=== PATIENT | female | born 1945 | race Caucasian/White ===

== ENCOUNTER → 2018-11-18 15:21 | Outpatient (CLI) | payer MEDICARE, OTHER, SELFPAY ==
--- NOTE | 2018-11-18 | DI.RAD.S_ITS ---
PROCEDURE: XR CHEST 2V INDICATIONS: CHRONIC COUGH TECHNIQUE: 2 views of the chest were acquired. COMPARISON: [facility], , CHEST 1 VIEW, 01/01/2018, 11:50. FINDINGS: Surgical changes and devices: None. Lungs and pleura: Lungs are clear. No pleural effusions or pneumothorax. Mediastinum: Mediastinal contours are normal. Heart size is normal. Bones and chest wall: No suspicious bony abnormalities. Soft tissues appear unremarkable. IMPRESSION: Source of chronic cough is not seen. Dictated by: Pedro Luis Oseguera M.D. on 11/18/2018 at 16:32 Approved by: Pedro Luis Oseguera M.D. on 11/18/2018 at 16:32
== END ==
PROVIDERS: Visit Provider Nurse Practitioner Family
DX: R05 Cough (principal)
CPT/HCPCS: 71046

== ENCOUNTER → 2018-12-14 14:56 | Outpatient (CLI) | payer MEDICARE, OTHER, SELFPAY | PROVIDERS: Visit Provider Nurse Practitioner Family | DX: Z78.0 Asymptomatic menopausal state (principal) | CPT/HCPCS: 77080 ==

== ENCOUNTER → 2021-01-31 09:14 | Outpatient (CLI) | payer MEDICARE, OTHER, SELFPAY ==
[2021-01-31 11:20] LABS: COVID19 -Nasal RAPID Negative (Negative)
== END ==
PROVIDERS: PCP Physician Assistant Medical; Visit Provider Surgery
DX: Z20.822 Contact with and (suspected) exposure to COVID-19 (principal); Z01.812 Encounter for preprocedural laboratory examination
CPT/HCPCS: 87635; C9803

== ENCOUNTER 2021-02-01 09:18 | Day surgery (SDC) | payer MEDICARE, OTHER, SELFPAY ==
[2021-02-01] VITALS (8 sets, daily range): BP systolic 76–159; BP diastolic 43–87; PULSE 63–74; RESP 10–16; TEMP 36.1–36.4; O2SAT 94–98; BMI 33.3
--- NOTE | 2021-02-01 10:02 | PM.HP.1 ---
History of Present Illness History of Present Illness Date Patient Seen: 02/01/21 Time Patient Seen: 10:02 Chief complaint: SDC Narrative: This is a 75-year-old woman with history of colon polyps and constipation who comes in for colonoscopy. She denies any melena, hematochezia, unexplained abdominal pain, or unexplained weight loss. She has noticed a change in her bowel habit including worsening constipation over the last 6 or 8 months. She says she is otherwise in good health. ROS: Constipation. Thirteen system review is otherwise negative other than as mentioned below and in HPI. PE: GENERAL: Well groomed and cooperative. Appears stated age. Answers questions promptly and appropriately. Vital signs noted. HENT: Normocephalic, atraumatic. Hearing intact. EYES: Conjunctiva pink, sclera white, no periorbital swelling. CARDIOVASCULAR: Regular rate. No pedal edema. RESPIRATORY: Non-tachypneic, breathing comfortably on room air. GASTROINTESTINAL: Abdomen soft and non-distended GENITALURINARY: No flank tenderness. MUSCULOSKELETAL: Equal tone and mass bilaterally. SKIN: Warm, dry, soft, appropriate color for ethnicity. No other lesions, rashes, or wounds. NEURO: Alert and Oriented X 3. No gross sensory deficits, or cognitive issues. PSYCH: Appropriate affect and mood. Meds Home Medications and Allergies Home Medications Medication Instructions Recorded Confirmed Type metoprolol tartrate 50 mg PO BID #0 01/01/18 02/01/21 History omeprazole 20 mg PO QDAY #0 01/01/18 02/01/21 History simvastatin 20 mg PO HS #0 01/01/18 02/01/21 History fexofenadine [Amber] 180 mg PO DAILY 02/01/21 02/01/21 History losartan 100 mg PO DAILY 02/01/21 02/01/21 History polyethylene glycol 3350 [Miralax] 17 g PO DAILY 02/01/21 02/01/21 History triamterene-hydrochlorothiazid 1 tab PO DAILY 02/01/21 02/01/21 History Allergies Allergy/AdvReac Type Severity Reaction Status Date / Time No Known Allergies Allergy Uncoded 01/21/18 12:08 Assessment & Plan Assessment and plan (1) History of colon polyps: Status: Acute Assessment & Plan narrative: Risks and benefits of screening colonoscopy and possible polypectomy were discussed with the patient including risk of bleeding, perforation, need for additional procedures, risks of anesthesia. The patient desires to proceed with the colonoscopy procedure. COVID-19 COVID-19 status: Negative Result date/Date tested (Pos, Neg/Pending): 01/31/21 Time Spent With Patient Time with patient: 15-24 minutes Quality VTE Deep Vein Thrombosis/Pulmonary Embolism Present on Admission: No
[2021-02-01] MEDS: SODIUM CHLORIDE 0.9% 1,000 ML 200 ML IV (10:29)
--- NOTE | 2021-02-01 10:48 | P.OP.ENDO_ITS ---
Operative Date/Time/Diagnoses Date of procedure: 02/01/21 Time of procedure: 10:48 Pre-op diagnosis: History of colon polyps, due for surveillance colonoscopy Post-op diagnosis: other (No polyps, normal exam) Procedure & Clinicians Study performed: Colonoscopy Procedural sedation performed by the endoscopist Same procedure as scheduled: Yes Indications: Personal history of colon polyps, change in bowel habit Surgeon: Maxine Hanson Procedure Notes SCOAP/Timeout: Performed Procedure in detail: The patient was brought to the room and placed in left lateral decubitus position with all bony prominences padded. A time-out was performed and then the patient was given procedural sedation starting with 2 mg of Versed and 100 mcg of fentanyl. A total of 6 mg of Versed and 150 micro g of fentanyl were given for the entire procedure. Vitals were monitored throughout the procedure and remained stable. Once adequately sedated, the procedure was begun. A rectal exam was performed revealing no abnormalities. The colonoscope was then introduced to the rectum and advanced to the cecum in the usual fashion. The cecum was identified by the appendiceal orifice, the mucosal tri- fold, and the ileocecal valve. The scope was then retracted while rotating side to side and examining each mucosal fold. At the conclusion of the procedure retroflexion was performed and small grade 1-2 internal hemorrhoids without stigmata of bleeding were seen. The scope was then withdrawn from the rectum the procedure was concluded. The patient tolerated the procedure well and was transferred to the PACU in stable condition. Scope withdrawal time: 6 Sedation minutes: 18 Specimen(s): none sent Complications: none Impression: Normal colon Post-procedure Recommendations: Colonscopy in 5 years (Due to personal history of colon polyps.) Follow up: as needed Disposition: PACU
[2021-02-01] MEDS: MIDAZOLAM 5 MG/5 ML VIAL IV (11:05)
[2021-02-01] MEDS: fentaNYL 250 MCG/5 ML INJ IV (11:05)
== END 2021-02-01 11:53 | disposition home or self-care (01) ==
LOC: ENDO 09:22
PROVIDERS: PCP Physician Assistant Medical; Referring Provider Surgery; Visit Provider Surgery
PROC: 0DJD8ZZ Inspection of Lower Intestinal Tract, Via Natural or Artificial Opening Endoscopic (ICD-10-PCS; CPT 45378; principal; 2021-02-01 10:45)
DX: R19.4 Change in bowel habit (principal); Z86.010 Personal history of colon polyps; K64.0 First degree hemorrhoids
CPT/HCPCS: 45378; 99152; J2250; J3010

== ENCOUNTER 2022-03-23 18:05 | Emergency (ER) | payer MEDICARE, OTHER, SELFPAY ==
[2022-03-23] VITALS (9 sets, daily range): BP systolic 152–191; BP diastolic 68–82; PULSE 60–68; RESP 12–23; TEMP 36.5–36.6; O2SAT 96–100; BMI 32.0
--- NOTE | 2022-03-23 18:24 | DI.RAD.S_ITS ---
PROCEDURE: XR CHEST 1V INDICATIONS: chest pain TECHNIQUE: One view of the chest was acquired. COMPARISON: [facility], CR, XR CHEST 2V, 11/18/2018, 15:33. FINDINGS: Surgical changes and devices: Surgical anchors are seen in the right proximal humerus. Lungs and pleura: Lungs are clear. No pleural effusions or pneumothorax. Mediastinum: Mediastinal contours appear normal. Heart size is normal. Bones and chest wall: No suspicious bony lesions. Overlying soft tissues appear unremarkable. IMPRESSION: No acute cardiopulmonary abnormality. Dictated by: Andre Mulligan M.D. on 03/23/2022 at 19:07 Approved by: Andre Mulligan M.D. on 03/23/2022 at 19:07
--- NOTE | 2022-03-23 19:02 | PC.NURSE ---
Pt reports seeing white flashes of light, lightheadedness, and feeling foggy which began while at the park earlier today. She reports it lasted for about 1 to 1.5 hours. She states she went and laid down which helped. Reports only seeing flashes of light when eyes are open, but not shut. Hx of cataracts. Pt reports all symptoms have resolved.
--- NOTE | 2022-03-23 19:19 | ED.GENADULT ---
HPI - General Adult General Chief complaint: Dizziness Stated complaint: Low blood pressure Time Seen by Provider: 03/23/22 19:05 Source: patient Mode of arrival: Ambulatory History of Present Illness HPI narrative: 76-year-old woman with history of labile blood pressure and cardiovascular disease with description of valvular abnormality presents today complaining of an episode after she walked her grandchildren to a park where she had approximately 20 minute of severely bright almost knee on like lytes with zigzag did points on the outside. Not associated with headache, other visual changes or visual loss, chest pain, palpitations, abdominal pain, nausea, vomiting. She had no paresthesias or other cognitive deficits. Symptoms resolved spontaneously about 20 minutes after initially starting. She notes that her blood pressure today earlier this morning was at 121/77 later this afternoon was at 139/77. She continues to take her spironolactone 25 mg, losartan 100 mg, Lasix 20 mg, metoprolol 100 mg b.i.d., 20 mg of simvastatin 20 mg of omeprazole. In the emergency department she states that she feels fine at this time. Related Data Home Medications Medication Instructions Recorded Confirmed metoprolol tartrate 50 mg tablet 50 mg PO BID ##0 01/01/18 02/01/21 omeprazole 20 mg tablet,delayed 20 mg PO QDAY ##0 01/01/18 02/01/21 release simvastatin 20 mg tablet 20 mg PO HS ##0 01/01/18 02/01/21 fexofenadine 180 mg tablet 180 mg PO DAILY 02/01/21 02/01/21 losartan 100 mg tablet 100 mg PO DAILY 02/01/21 02/01/21 polyethylene glycol 3350 17 gram 17 g PO DAILY 02/01/21 02/01/21 oral powder packet (Miralax) triamterene 37.5 1 tab PO DAILY 02/01/21 02/01/21 mg-hydrochlorothiazide 25 mg tablet Allergies Allergy/AdvReac Type Severity Reaction Status Date / Time No Known Allergies Allergy Uncoded 01/21/18 12:08 Review of Systems Review of Systems Narrative: Remainder of complete review of systems is otherwise unremarkable except for that included in the HPI. Patient History Social History household members: spouse Smoking Status: Never smoker alcohol intake: former Smoking Status: Never smoker Substance Use Type: does not use Exam Initial Vital Signs Initial Vital Signs: Vital Signs Temperature 97.7 F 03/23/22 18:05 Pulse Rate 67 03/23/22 18:05 Respiratory Rate 18 03/23/22 18:05 Blood Pressure 191/82 H 03/23/22 18:05 Pulse Oximetry 96 03/23/22 18:05 Oxygen Delivery Method 03/23/22 18:05 Course Orders Ordered: ED Orders 03/23/22 18:24 XR chest 1V Stat EKG-12 Lead Stat 03/23/22 18:46 Complete Blood Count AUTO DIFF Stat Comprehensive Metabolic Panel Stat Lipase Stat Magnesium Stat Troponin & CK Cardiac Panel Stat Vital Signs Vital signs: Vital Signs - 8 hr 03/23/22 18:05 Temperature 97.7 F Pulse Rate 67 Respiratory Rate 18 Blood Pressure 191/82 H Pulse Oximetry 96 Oxygen Delivery Method Room Air Medical Decision Making Lab Data Result diagrams: 03/23/22 18:46 03/23/22 18:46 Labs: Lab Results 03/23/22 03/23/22 Range/Units 18:46 18:46 WBC 7.5 (4.5-11.0) X10^3/uL RBC 4.57 (4.0-5.2) X10^6/uL Hgb 12.4 (12.0-16.0) g/dL Hct 36.9 (36-46) % MCV 80.8 (80-100) fL MCH 27.1 (26-34) PG MCHC 33.5 (30-36) % RDW 14.9 H (11.6-14.8) % Plt Count 267 (150-400) X10^3/uL Neut % (Auto) 53.7 (50-75) % Lymph % (Auto) 35.3 (25-40) % [place] % (Auto) 7.1 (3-14) % Eos % (Auto) 3.1 (2-4) % Baso % (Auto) 0.8 (0-2) % Neut # (Auto) 4000 (3330-1333) /uL Lymph # (Auto) 2600 (6474-7594) /uL [place] # (Auto) 500 (0-900) /uL Eos # (Auto) 200 (0-450) /uL Baso # (Auto) 100 (0-100) /uL Sodium 139 (137-145) mmol/L Potassium 4.7 (3.4-5.1) mmol/L Chloride 101 (98-107) mmol/L Carbon Dioxide 29 (22-32) mmol/L BUN 24 H (7-17) mg/dL Creatinine 1.09 H (0.52-1.04) mg/dL Estimated GFR 52 L (>60) mL/min BUN/Creatinine Ratio 22.0 (6-22) Glucose 106 (80-110) mg/dL Calcium 9.3 (8.4-10.2) mg/dL Magnesium 2.0 (1.6-2.3) mg/dL Total Bilirubin 0.7 (0.2-1.3) mg/dL AST 23 (14-36) IU/L ALT 18 (<35) IU/L Alkaline Phosphatase 81 (38-126) U/L Total Creatine Kinase 37 (30-135) U/L CK-MB (CK-2) TNP CK-MB (CK-2) Rel Index TNP Troponin I < 0.012 (0.01-0.034) ng/mL Total Protein 7.8 (6.3-8.2) g/dL Albumin 4.5 (3.5-5.0) g/dL Globulin 3.3 (1.7-4.1) g/dL Albumin/Globulin Ratio 1.4 (1.0-2.8) Lipase 82 (23-300) U/L Imaging Data Chest x-ray: Radiologist's Impression: FINDINGS:? ? Surgical changes and devices:? Surgical anchors are seen in the right proximal humerus. ? Lungs and pleura:? Lungs are clear.? No pleural effusions or pneumothorax.? ? Mediastinum:? Mediastinal contours appear normal.? Heart size is normal.? ? Bones and chest wall:? No suspicious bony lesions.? Overlying soft tissues appear unremarkable.? ? IMPRESSION:? No acute cardiopulmonary abnormality. ? ? Dictated by: Andre Mulligan M.D. on 03/23/2022 at 19:07? ?? ECG Data Interpretation: Sinus rhythm first-degree block at a rate of 65 Left axis deviation with left bundle branch block Does not meet Sgarbossa criteria for ischemic abnormalities MDM Narrative Medical decision making narrative: 76-year-old woman who presents with complaints of right flashing lights lasting approximately 20 minutes earlier today. She has had some blood pressure medication changes but blood pressure seems to be appropriate. When shown pictures of ocular migraine she positively identifies the lytes as what she experienced earlier today. In retrospect, she states that she did have something similar approximately 30 years ago but it has not bothered her since. At this time I am seeing no evidence of acute coronary syndrome, stroke, ophthalmic abnormalities or retinal injury. Her blood pressure is adequately controlled and she is no longer having any ocular migraine symptoms. She is safe to go and lost her follow-up with her primary care provider. Discharge Plan Departure Patient Disposition: Home Clinical Impression: Ocular migraine Activity Restrictions/Additional Instructions: Thank you for coming in today Your workup was unremarkable and her blood pressure is stable at this point. Please continue all of your blood pressure medications as prescribed. Your description of the light show this afternoon absolutely correlates with an ocular migraine. This is an interesting migraine variant that typically lasts around 20 minutes with the bright lights and zigzag pattern you describe an typically is not associated with headache. This is not a sign of a stroke or an indication that you are at higher risk for stroke in the next couple of days. There is nothing different that you need to do at this point. If you have new or unusual symptoms please feel free to return to the emergency department Prescriptions: No Action simvastatin 20 MG tablet 20 mg PO HS Qty: 0 metoprolol tartrate 50 MG tablet 50 mg PO BID Qty: 0 omeprazole 20 MG tablet,delayed release (DR/EC) 20 mg PO QDAY Qty: 0 fexofenadine 180 mg Tablet 180 mg PO DAILY losartan 100 mg tablet 100 mg PO DAILY triamterene-hydrochlorothiazid 37.5-25 mg tablet 1 tab PO DAILY polyethylene glycol 3350 [Miralax] 17 gram Powder In Packet 17 g PO DAILY Referrals: Lina Cadena PA-C [Primary Care Provider] -
[2022-03-23 19:28] LABS: Alanine Aminotransferase 18 IU/L (<35); Albumin 4.5 g/dL (3.5-5.0); Albumin Globulin Ratio 1.4 (1.0-2.8); Alkaline Phosphatase 81 U/L (38-126); Aspartate Aminotransferase 23 IU/L (14-36); Bilirubin Total 0.7 mg/dL (0.2-1.3); Blood Urea Nitrogen 24 mg/dL (7-17); Calcium 9.3 mg/dL (8.4-10.2); Carbon Dioxide 29 mmol/L (22-32); Chloride 101 mmol/L (98-107); Creatine Kinase 37 U/L (30-135); Estimated Glomerular Filt Rate 52 mL/min (>60); Globulin 3.3 g/dL (1.7-4.1); Glucose 106 mg/dL (80-110); HEMOLYSIS < 15 (0-50); Lipase 82 U/L (23-300); Potassium 4.7 mmol/L (3.4-5.1); Sodium 139 mmol/L (137-145); Total Protein 7.8 g/dL (6.3-8.2)
[2022-03-23 19:30] LABS: Add Manual Diff / Slide Review NO; Basophils Absolute Auto 100 /uL (0-100); Basophils Percent Auto 0.8 % (0-2); Eosinophils Absolute Auto 200 /uL (0-450); Eosinophils Percent Auto 3.1 % (2-4); Hematocrit 36.9 % (36-46); Hemoglobin 12.4 g/dL (12.0-16.0); Lymphocytes Absolute Auto 2600 /uL (1100-4500); Lymphocytes Percent Auto 35.3 % (25-40); Mean Corpuscular HGB Conc 33.5 % (30-36); Mean Corpuscular Hemoglobin 27.1 PG (26-34); Mean Corpuscular Volume 80.8 fL (80-100); Monocytes Absolute Auto 500 /uL (0-900); Monocytes Percent Auto 7.1 % (3-14); Neutrophils Absolute Auto 4000 /uL (1500-7000); Neutrophils Percent Auto 53.7 % (50-75); Platelet Count 267 X10^3/uL (150-400); Red Blood Cell Count 4.57 X10^6/uL (4.0-5.2); Red Cell Distribution Width 14.9 % (11.6-14.8); White Blood Cell Count 7.5 X10^3/uL (4.5-11.0)
[2022-03-23 19:40] LABS: Troponin I < 0.012 ng/mL (0.01-0.034)
== END 2022-03-23 20:03 | disposition home or self-care (01) ==
PROVIDERS: Emergency Provider Emergency Medicine; PCP Physician Assistant Medical
DX: G43.109 Migraine with aura, not intractable, without status migrainosus (principal); R07.9 Chest pain, unspecified
CPT/HCPCS: 71045; 80053; 82550; 83690; 83735; 84484; 85025; 93005; 93010; 99283

== ENCOUNTER 2025-03-01 06:47 | Emergency (ER) | payer MEDICARE, OTHER, SELFPAY ==
[2025-03-01] VITALS (18 sets, daily range): BP systolic 115–168; BP diastolic 58–108; PULSE 63–74; RESP 11–24; TEMP 36.6; O2SAT 95–98; BMI 30.7
--- NOTE | 2025-03-01 07:28 | DI.RAD.S_ITS ---
PROCEDURE: XR CHEST 1V INDICATIONS: Chest Pain TECHNIQUE: One view of the chest was acquired. COMPARISON: [facility], CR, XR CHEST 1V, 03/23/2022, 18:28. [facility], CR, XR CHEST 2V, 11/18/2018, 15:33. FINDINGS AND IMPRESSION: Low lung volumes. No dense airspace disease or pleural effusions. Normal heart size, unchanged. Degenerative osseous findings. Dictated by: Venkat Joshi M.D. on 03/01/2025 at 8:09 Approved by: Venkat Joshi M.D. on 03/01/2025 at 8:10
--- NOTE | 2025-03-01 07:38 | EKG_ITS ---
[address] [address] [place] [address] Test Date: 2025-03-01 Pat Name: Raisa Alvarado Department: [facility] Room: Gender: Female Dental Office Assistant: SHARATH : 1945 Requested By: Order Number: [id number] Reading MD: Rikki Conte Measurements Intervals Nimitz Rate: 69 P: 39 DC: 236 QRS: -42 QRSD: 150 T: 100 QT: 438 QTc: 469 Interpretive Statements Sinus rhythm with 1st degree AV block Left axis deviation Left bundle branch block Electronically Signed On 03-02-2025 16:21:06 PDT by Rikki Conte
[2025-03-01 07:58] LABS: Add Manual Diff / Slide Review NO; Basophils Absolute Auto 100 /uL (0-100); Basophils Percent Auto 1.1 % (0-2); Eosinophils Absolute Auto 200 /uL (0-450); Eosinophils Percent Auto 3.5 % (2-4); Hematocrit 36.6 % (36-46); Hemoglobin 12.1 g/dL (12.0-16.0); Lymphocytes Absolute Auto 2200 /uL (1100-4500); Lymphocytes Percent Auto 34.7 % (25-40); Mean Corpuscular Hemoglobin 27.8 PG (26-34); Mean Corpuscular Volume 84.2 fL (80-100); Monocytes Absolute Auto 800 /uL (0-900); Monocytes Percent Auto 11.9 % (3-14); Neutrophils Absolute Auto 3200 /uL (1500-7000); Neutrophils Percent Auto 48.8 % (50-75); Platelet Count 217 X10^3/uL (150-400); Red Blood Cell Count 4.35 X10^6/uL (4.0-5.2); White Blood Cell Count 6.4 X10^3/uL (4.5-11.0)
[2025-03-01 08:05] LABS: Prothrombin Time 11.3 SECONDS (9.4-12.5)
[2025-03-01 08:08] LABS: PTT Partial Thromboplastin Tim 35 SECONDS (25.1-36.5)
[2025-03-01 08:10] LABS: Alanine Aminotransferase 23 IU/L (<35); Albumin 4.5 g/dL (3.5-5.0); Albumin Globulin Ratio 1.6 (1.0-2.8); Alkaline Phosphatase 80 U/L (38-126); Aspartate Aminotransferase 27 IU/L (14-36); Bilirubin Total 0.7 mg/dL (0.2-1.3); Blood Urea Nitrogen 26 mg/dL (7-17); Calcium 9.9 mg/dL (8.4-10.2); Carbon Dioxide 26 mmol/L (22-32); Chloride 104 mmol/L (98-107); Creatine Kinase 37 U/L (30-135); Estimated Glomerular Filt Rate 46 mL/min (>60); Globulin 2.9 g/dL (1.7-4.1); Glucose 98 mg/dL (70-99); HEMOLYSIS < 15 (0-50); Lipase 88 U/L (23-300); Magnesium 1.7 mg/dL (1.6-2.3); Potassium 4.2 mmol/L (3.4-5.1); Sodium 138 mmol/L (137-145); Total Protein 7.4 g/dL (6.3-8.2)
[2025-03-01 08:22] LABS: NT-proBNP (BNP-Adult 18+) 317 pg/mL (<450); Troponin I < 0.012 ng/mL (0.01-0.034)
--- NOTE | 2025-03-01 08:44 | ED_ITS ---
HPI - General Adult General Chief complaint: Altered Mental Status Stated complaint: Has been falling down started 2 days ago Time Seen by Provider: 03/01/25 08:42 Source: patient and family Mode of arrival: Ambulatory Limitations: no limitations History of Present Illness HPI narrative: 79-year-old female history of hypertension, dyslipidemia, CKD with recent sinus infection on antibiotics who presents for multiple episodes of falling. Patient states she was fallen 5 or 6 times in the last 2 or 3 days. She does not think she was hit her head at any point, she has chronic low back pain but states it is not worse than her normal. She notes some chronic left leg weakness but states it has been significantly worse the last 2 or 3 days and now she was to lift and help to move her leg. She does not have any pain radiating down her leg. No numbness or tingling down the leg. She denies any headaches, she denies any chest pain or shortness of breath. No nausea or vomiting. No numbness or tingling does not appreciate any obvious weakness of her left upper extremity but she was not sure. She does note speech changes and her at bedside also notes she was had word-finding difficulty and occasionally slurring of her speech over the past 2-3 days. Patient has been states there maybe a little bit of left-sided facial droop but he was not convinced. She was also noticed a little bit of vision change but mostly just in the morning. Patient states no aspirin or thinners, she states she takes medication for hypertension, dyslipidemia, seasonal allergies, Jardiance for CKD but quit a month ago because it diarrhea has been on oral antibiotic for a sinus infection. She denies any back surgeries. Reports a prior allergy to sulfa but states she was taken it since. No tobacco, alcohol or recreational drugs. Follows with CANDY cadena as her primary care physician. Follows with nephrology and Cardiology through [facility]. Related Data Home Medications Medication Instructions Recorded Confirmed metoprolol tartrate 50 mg tablet 50 mg PO BID ##0 01/01/18 02/01/21 omeprazole 20 mg tablet,delayed 20 mg PO QDAY ##0 01/01/18 02/01/21 release simvastatin 20 mg tablet 20 mg PO HS ##0 01/01/18 02/01/21 fexofenadine 180 mg tablet 180 mg PO DAILY 02/01/21 02/01/21 losartan 100 mg tablet 100 mg PO DAILY 02/01/21 02/01/21 polyethylene glycol 3350 17 gram 17 g PO DAILY 02/01/21 02/01/21 oral powder packet (Miralax) triamterene 37.5 1 tab PO DAILY 02/01/21 02/01/21 mg-hydrochlorothiazide 25 mg tablet Allergies Allergy/AdvReac Type Severity Reaction Status Date / Time amlodipine Allergy Verified 03/01/25 07:22 Review of Systems Review of Systems ROS Unobtainable: All systems reviewed & are unremarkable except as noted in HPI and below Patient History Social History household members: spouse Smoking Status: Never smoker alcohol intake: former Smoking Status: Never smoker Exam Narrative Exam Narrative: GEN: well nourished, well appearing female, alert and oriented x 3, patient appears to be in mild distress. HEENT: Atraumatic, pupils are equal round reactive to light, extraocular movements are intact, nares are clear, TMs are clear with no fluid, there is no conjunctival pallor. Throat is clear without any exudates, erythema, tonsillar enlargement or uvular deviation, questionable left facial droop. HEART: Regular rate and rhythm without murmur, clicks, rubs. Pulses are equal in upper and lower extremities LUNGS:Lungs clear to auscultation, no wheezes, rales, crackles, chest moves symmetrically ABD:bowel sounds normal, soft, non-tender, no guarding, rebound, rigidity, no masses noted, no hepatosplenomegaly :No CVA tenderness MSCL: Non-tender, no muscle atrophy, muscles strength 5/5 upper and lower extremities, full range of motion. NEURO:CN 2-12 intact, sensation normal, finger nose finger test normal, heel bruno test difficulty with left leg patient is able to perform with the right. Occasional word-finding on exam. Initial Vital Signs Initial Vital Signs: Vital Signs Temperature 98 F 03/01/25 07:23 Pulse Rate 74 03/01/25 07:23 Respiratory Rate 16 03/01/25 07:23 Blood Pressure 133/67 03/01/25 07:23 Pulse Oximetry 96 03/01/25 07:23 Oxygen Delivery Method Room Air 03/01/25 07:23 Scores NIH Stroke Scale Level of Conciousness: Alert, keenly responsive Ask month/age: Answers both questions correctly. Open/close eyes, close hand: Performs both tasks correctly Best gaze horizontal: Normal Visual bar: No visual loss Facial palsy: Normal symetrical movement Left arm drift: No drift for full 10 sec Right arm drift: No drift for full 10 sec Left leg drift: No drift for full 5 sec Right leg drift: No drift for full 5 sec Limb ataxia: Present in one limb Sensory on face/arms/legs: Normal, no sensory loss Best language: No aphasia, normal Dysarthria: Normal Extinction or inattention: No abnormality Total NIH Stroke scale score: 1 Course Orders Ordered: ED Orders 03/01/25 07:28 XR chest 1V Stat EKG-12 Lead Stat RT Consult Eval and Treat NOW 03/01/25 07:49 Complete Blood Count AUTO DIFF Stat Comprehensive Metabolic Panel Stat Lactate (Lactic Acid) Stat Lipase Stat Magnesium Stat NT-proBNP (BNP-Adult 18+) Stat PTT Partial Thromboplastin Escobar Stat Prothrombin Time INR Stat Troponin & CK Cardiac Panel Stat 03/01/25 09:04 MR stroke Stat 03/01/25 09:05 CT head/brain wo con Stat Discontinued Medications Midazolam HCl (Midazolam 5 Mg/Ml Vial) 0.5 mg IV NOW ONE Stop: 03/01/25 10:01 Last Admin: 03/01/25 10:03 Dose: 0.5 mg Documented By: SHARATH Vital Signs Vital signs: Vital Signs - 8 hr 03/01/25 07:51 03/01/25 07:51 03/01/25 08:00 Pulse Rate 66 66 Respiratory Rate 22 19 Blood Pressure 141/63 H Pulse Oximetry 97 98 03/01/25 08:00 03/01/25 08:30 03/01/25 08:30 Pulse Rate 66 Respiratory Rate 17 Blood Pressure 146/71 H 154/68 H Pulse Oximetry 97 03/01/25 09:00 03/01/25 09:01 03/01/25 09:01 Pulse Rate 66 67 Respiratory Rate 24 23 Blood Pressure 154/72 H Pulse Oximetry 97 97 03/01/25 09:29 03/01/25 09:29 03/01/25 09:30 Pulse Rate 69 70 Respiratory Rate 15 20 Blood Pressure 168/108 H Pulse Oximetry 97 98 03/01/25 09:31 03/01/25 09:31 03/01/25 10:00 Pulse Rate 67 66 Respiratory Rate 20 18 Blood Pressure 161/69 H Pulse Oximetry 98 96 03/01/25 10:01 03/01/25 10:01 03/01/25 10:54 Pulse Rate 68 69 Respiratory Rate 23 20 Blood Pressure 154/80 H Pulse Oximetry 97 95 03/01/25 10:55 03/01/25 10:55 03/01/25 11:00 Pulse Rate 66 66 Respiratory Rate 11 L 18 Blood Pressure 145/64 H Pulse Oximetry 97 97 03/01/25 11:01 03/01/25 11:01 03/01/25 11:30 Pulse Rate 66 Respiratory Rate 19 Blood Pressure 115/60 123/58 L Pulse Oximetry 98 03/01/25 11:30 Pulse Rate 63 Respiratory Rate 21 Blood Pressure Pulse Oximetry 97 Medical Decision Making Lab Data 03/01/25 07:49 03/01/25 07:49 Labs: Lab Results 03/01/25 Range/Units 07:49 WBC 6.4 (4.5-11.0) X10^3/uL RBC 4.35 (4.0-5.2) X10^6/uL Hgb 12.1 (12.0-16.0) g/dL Hct 36.6 (36-46) % MCV 84.2 (80-100) fL MCH 27.8 (26-34) PG MCHC 33.0 (30-36) % RDW 14.0 (11.6-14.8) % Plt Count 217 (150-400) X10^3/uL Neut % (Auto) 48.8 L (50-75) % Lymph % (Auto) 34.7 (25-40) % [place] % (Auto) 11.9 (3-14) % Eos % (Auto) 3.5 (2-4) % Baso % (Auto) 1.1 (0-2) % Neut # (Auto) 3200 (5469-3519) /uL Lymph # (Auto) 2200 (4757-1839) /uL [place] # (Auto) 800 (0-900) /uL Eos # (Auto) 200 (0-450) /uL Baso # (Auto) 100 (0-100) /uL PT 11.3 (9.4-12.5) SECONDS INR 1.0 (0.9-1.3) APTT 35 (25.1-36.5) SECONDS Sodium 138 (137-145) mmol/L Potassium 4.2 (3.4-5.1) mmol/L Chloride 104 (98-107) mmol/L Carbon Dioxide 26 (22-32) mmol/L BUN 26 H (7-17) mg/dL Creatinine 1.18 H (0.52-1.04) mg/dL Estimated GFR 46 L (>60) mL/min BUN/Creatinine Ratio 22.0 (6-22) Glucose 98 (70-99) mg/dL Lactate 1.0 (0.7-2.1) mmol/L Calcium 9.9 (8.4-10.2) mg/dL Magnesium 1.7 (1.6-2.3) mg/dL Total Bilirubin 0.7 (0.2-1.3) mg/dL AST 27 (14-36) IU/L ALT 23 (<35) IU/L Alkaline Phosphatase 80 (38-126) U/L Total Creatine Kinase 37 (30-135) U/L Troponin I < 0.012 (0.01-0.034) ng/mL NT-Pro-B Natriuret Pep 317 (<450) pg/mL Total Protein 7.4 (6.3-8.2) g/dL Albumin 4.5 (3.5-5.0) g/dL Globulin 2.9 (1.7-4.1) g/dL Albumin/Globulin Ratio 1.6 (1.0-2.8) Lipase 88 (23-300) U/L Urine Dip Bedside Urine Glucose Negative Bedside Urine Bilirubin - Negative Bedside Urine Ketone - Negative Urine Specific [place] 1.015 Bedside Urine Occult Blood - Negative Bedside Urine pH 6.0 Bedside Urine Protein - Negative Bedside Urine Urobilinogen - Negative Bedside Urine Nitrite - Negative Bedside Urine Leukocytes - Negative Esterase Point of care testing: Urine Dip Bedside Urine Glucose Negative Bedside Urine Bilirubin - Negative Bedside Urine Ketone - Negative Urine Specific [place] 1.015 Bedside Urine Occult Blood - Negative Bedside Urine pH 6.0 Bedside Urine Protein - Negative Bedside Urine Urobilinogen - Negative Bedside Urine Nitrite - Negative Bedside Urine Leukocytes - Negative Esterase ECG Data Attestation: I personally reviewed and interpreted this ECG as follows: Interpretation: Sinus rhythm first-degree AV block left axis deviation left bundle-branch block rate of 69 OH 236 QRS of 150 QTC 469. [facility] Narrative Medical decision making narrative: EKG shows sinus rhythm first-degree AV block, left axis deviation, left bundle- branch. Patient has prior from 03/23/22. CBC shows normal white count hemoglobin and platelets. Coags are negative creatinine is 1.18 was 1.09 and 2021 BUN is 26 with a normal electrolytes glucose is 98 lactate 1, LFTs are negative troponins less than 0.012 with a BNP of 317. Chest x-ray shows no acute change Head CT shows no acute change MR brain stroke protocol shows no acute intracranial process, no acute or chronic infarcts no intracranial hemorrhage, no suspicious postcontrast enhancement. MR is negative for brain, neck shows severe greater than 70% stenosis origin left ICA, severe stenosis of the origin of the right vertebral artery, moderate to 56% stenosis right ICA. Mild stenosis origin of the left vertebral artery. Patient requested medication for MR as she gets quite anxious., Given a small dose of Versed IV 79-year-old female complaint of multiple falls over the past 5 days patient notes chronic left leg weakness but states it is much worse she was unsure about her left upper extremity she did note a little bit of speech changes which are has been also endorses over the past 2 or 3 days as well as some mild visual changes in the morning but states it improves as the day goes by. Patient also notes she tends to bump into quarters when she goes to turn to go around them. Head CT was obtained to rule bleed, patient's EKG labs and chest x-ray showed no acute change. NIH of 1 secondary to ataxia with her left leg. Patient does have some chronic back pain but states it is not any worse than normal with her combination of symptoms weakness of her lower extremities secondary to radiculopathy as possible but symptoms seem more consistent with potential stroke. MR is not available until later so CT head was obtained to rule out bleed. MR does not show any acute stroke it has been 3 days if symptoms suspect this maybe more her back/lower extremity. She does have changes to the vessels of her neck that does not need follow up. Patient ambulated here in the department. Discussed with the patient we will discharge her home with a walker see if this is helpful have her follow up as a set back to this point maybe more secondary to issues with her back as she does have some chronic back pain and chronic weakness in the lower extremity. Did review her findings and need for follow-up she was on a statin but may need to be adjusted. Discharge Plan Departure Patient Disposition: Home Clinical Impression: Left leg weakness Activity Restrictions/Additional Instructions: Your workup today did not show any changes on the MRI of your brain there are no strokes acute or chronically, no bleed or other changes you do have some stenosis greater than 70% on the left internal carotid as well as some stenosis of the right vertebral artery and some moderate stenosis at the right internal carotid artery please follow up with your physician, they may need to adjust her medications dependent on future symptoms may refer you for follow up for the left internal carotid. Please return if you have new or worsening changes, rapidly worsening weakness, severe headaches, other new changes to speech, vision, chest pain or shortness of breath, new weakness numbness or other new or concerning changes. Prescriptions: No Action simvastatin 20 MG tablet 20 mg PO HS Qty: 0 metoprolol tartrate 50 MG tablet 50 mg PO BID Qty: 0 omeprazole 20 MG tablet,delayed release (DR/EC) 20 mg PO QDAY Qty: 0 fexofenadine 180 mg Tablet 180 mg PO DAILY losartan 100 mg tablet 100 mg PO DAILY triamterene-hydrochlorothiazid 37.5-25 mg tablet 1 tab PO DAILY polyethylene glycol 3350 [Miralax] 17 gram Powder In Packet 17 g PO DAILY Referrals: Lina Cadena PA-C [Primary Care Provider] - Stand Alone Forms: Patient Portal/API/Survey
--- NOTE | 2025-03-01 09:04 | DI.MRI.S_ITS ---
PROCEDURE: MR STROKE Pre- and post-contrast brain MRI, non-contrast brain MR angiogram, pre- and postcontrast neck MR angiogram INDICATIONS: weakness L leg, speech change TECHNIQUE: Brain: Noncontrast axial T1 spin echo, axial T2 fast spin echo, sagittal and axial FLAIR, coronal T2 fast spin echo, axial gradient echo, axial diffusion and ADC through the brain. After the administration of contrast, axial 3D VIBE of the cranial vasculature and brain. Brain MRA: Non-contrast 3-D time of flight MR angiogram, with multiple lhuhvkq-ukunughxe-nndsdlckzf (MIP) reformats performed. Neck MRA: Axial and sagittal TruFISP through the neck. Coronal dynamic MR angiogram during administration of contrast in the arterial and venous phases, with 3-dimenstional nwjaazw-lhagmnuny-eurzndixcf (MIP) reformats constructed from subtraction images. COMPARISON: None. FINDINGS: Image quality: Excellent. BRAIN: CSF spaces: Ventricles are normal in size and shape. Basal cisterns are patent. No extra-axial fluid collections. Brain: No intracranial bleeds or mass effects. Mild, diffuse cerebral volume loss. Mild periventricular and subcortical white matter chronic microvascular ischemic changes. Montanez-white matter interface is normal. Diffusion weighted images show no acute infarct. Brainstem appears normal. Normal intravascular flow voids are present. No abnormal intracranial enhancement. Skull and face: Calvarial marrow signal is normal. Orbits appear normal. Sinuses: Mild mucosal thickening with small frothy air-fluid level in the right maxillary sinus. mastoids are clear. BRAIN MR ANGIOGRAM: Anterior circulation: Intracranial internal carotid arteries are normal in size and enhancement. The flow within the paired anterior cerebral arteries is normal and symmetric. The flow within the middle cerebral arteries is normal and symmetric. The anterior communicating artery is seen. No stenoses, occlusions, or aneurysms. Posterior circulation: The visualized portions of the vertebral arteries demonstrate normal caliber, and join to form a normal appearing basilar artery. The flow within the posterior cerebral arteries is normal and symmetric. No stenoses, occlusions, or aneurysms. NECK MR ANGIOGRAM: Carotids: Great vessels demonstrate a conventional anatomy as they arise from the aortic arch. The origins of the common carotid arteries appear patent. The calibers and courses of both common carotid arteries are normal. Atherosclerotic stenosis involving the origins of the right left internal carotid arteries that causes mild moderate, 50-60% stenosis of the origin of the right internal carotid artery and high-grade, greater than 70% stenosis of the origin of the left internal carotid artery. Atherosclerotic irregularity in the mid cervical segment of the right internal carotid artery causes mild, less than 50% stenosis. Posterior circulation: Dominant left vertebral artery. Mild atherosclerotic irregularity in the origin of the left vertebral artery which causes mild narrowing of the vessel. High-grade stenosis of the origin of the right vertebral artery with diminished flow distal to the stenosis. More superior portions of both vertebral arteries demonstrate normal course and caliber, and join to form a normal appearing basilar artery. Miscellaneous: Subclavian arteries appear patent. Pre-contrast images through the neck show no soft tissue abnormalities. IMPRESSION: BRAIN MRI: No acute intracranial disease process. No acute or chronic infarcts. No intracranial hemorrhage. No suspicious postcontrast enhancement. BRAIN MR ANGIOGRAM: Negative examination. NECK MR ANGIOGRAM: Severe greater than 70% stenosis of the origin of the left internal carotid artery. Severe stenosis involving the origin of the right vertebral artery. Moderate, 50-60% stenosis of the origin of the right internal carotid artery. Mild stenosis of the origin of the left vertebral artery. Dictated by: Veda Tirado MD, PhD on 03/01/2025 at 11:06 Approved by: Veda Tirado MD, PhD on 03/01/2025 at 11:15
--- NOTE | 2025-03-01 09:05 | DI.CT.S_ITS ---
PROCEDURE: CT HEAD/BRAIN WO CON INDICATIONS: L leg weakness/speech change, multiple falls TECHNIQUE: Noncontrast 4.5 mm thick angled axial sections acquired from the foramen magnum to the vertex, with coronal and sagittal reformats. For radiation dose reduction, the following was used: automated exposure control, adjustment of mA and/or kV according to patient size. COMPARISON: [facility], CT, HEAD WITHOUT CONTRAST, 01/01/2018, 11:40. FINDINGS: Image quality: Diagnostic CSF spaces: Basal cisterns are patent. Lateral ventricles are symmetric. Volume: Vascular calcifications. Periventricular white matter disease is commonly seen with chronic microangiopathy. Volume loss is present. These findings are yxzw-mo-zrqhpvyk Brain: No intracranial hemorrhage. Montanez-white differentiation is grossly maintained. Craniofacial structures: No significant paranasal sinus opacity where visualized IMPRESSION: No acute intracranial pathology. If there is high concern for parenchymal pathology, consider further evaluation with MRI. Dictated by: Venkat Joshi M.D. on 03/01/2025 at 9:40 Approved by: Venkat Joshi M.D. on 03/01/2025 at 9:41
--- NOTE | 2025-03-01 09:49 | PC.NURSE ---
No pain present. No bruising or deformities noted. Ambulated to room without issue. Patient reports difficulty with word finding and speech. Did not demonstrate this. Speech clear upon conversation.
[2025-03-01] MEDS: MIDAZOLAM 5 MG/ML VIAL IV (10:03)
== END 2025-03-01 12:31 | disposition home or self-care (01) ==
PROVIDERS: Emergency Provider Emergency Medicine; PCP Physician Assistant Medical
DX: R53.1 Weakness (principal); R29.6 Repeated falls; R29.701 NIHSS score 1
CPT/HCPCS: 70450; 70544; 70549; 70553; 71045; 80053; 81003; 82550; 83605; 83690; 83735; 83880; 84484; 85025; 85610; 85730; 93005; 96374; 99284; A9579; J2250

== ENCOUNTER → 2025-05-11 11:07 | Outpatient (CLI) | payer MEDICARE, OTHER, SELFPAY ==
--- NOTE | 2025-05-11 11:10 | DI.CT.S_ITS ---
PROCEDURE: CT ANGIO HEAD AND NECK INDICATIONS: carotid artery disease TECHNIQUE: After the administration of intravenous contrast, 1 mm thick sections acquired from the aortic arch through the [place] of [place]. 3-dimensional fgelzkh-nohdobuwj-hsjodweviy (MIP) and/or volume rendering reformats were acquired of the central intracranial vasculature and neck separately. For radiation dose reduction, the following was used: automated exposure control, adjustment of mA and/or kV according to patient size. COMPARISON: [facility], MR, MR STROKE, 03/01/2025, 10:09. [facility], CT, CT HEAD/BRAIN WO CON, 03/01/2025, 9:19. FINDINGS: Image quality: Limited by bolus timing, with venous contamination. Cerebral CT Angiogram: Internal carotid arteries: The carotid bifurcation regions demonstrate atherosclerotic irregularity and calcification, with 70% narrowing seen on each side. The more distal internal carotid arteries demonstrate normal course and caliber. No acute findings. No occlusion. No aneurysm. Anterior cerebral arteries: Unremarkable. No significant stenosis. No occlusion. No aneurysm. Middle cerebral arteries: Unremarkable. No significant stenosis. No occlusion. No aneurysm. Posterior cerebral arteries: Unremarkable. No significant stenosis. No occlusion. No aneurysm. Basilar artery: Unremarkable. No significant stenosis. No occlusion. No aneurysm. Vertebral arteries: Unremarkable as visualized. Dural venous sinuses: Unremarkable given phase of enhancement. Other: Arterial phase appearance of the brain parenchyma is unremarkable. Neck CT Angiogram: Internal carotid arteries: Unremarkable. No significant stenosis. No dissection or occlusion. Common carotid arteries: Unremarkable. No significant stenosis. No dissection or occlusion. External carotid arteries: Unremarkable. No occlusion. Vertebral arteries: The origins of the vertebral arteries both appear widely patent. The more superior extracranial portions of both vertebral arteries also demonstrate normal courses and calibers. The left vertebral artery is dominant to the right. Aortic Arch and Mediastinum: Partially visualized aortic arch unremarkable without evidence of aneurysm. Origins of the great vessels unremarkable. Other: Arterial phase soft tissues of the neck and chest are unremarkable. Cervical spine degenerative changes are seen, which are worst inferiorly. IMPRESSION: No significant intracranial arterial abnormality is seen. Bilateral proximal internal carotid artery narrowing can be seen, with 70% narrowing seen on each side. On these images, the origins of the vertebral arteries are within normal limits. The left vertebral artery is dominant to the right. Additional findings: Lower cervical spine degenerative change Any quantitative measurements of stenosis were performed using NASCET criteria. Dictated by: Ra Cueto M.D. on 05/11/2025 at 11:35 Approved by: Ra Cueto M.D. on 05/11/2025 at 11:41
[2025-05-11 11:32] LABS: Estimated Glomerular Filt Rate 44 mL/min (>60)
== END ==
PROVIDERS: Internal Medicine; PCP Physician Assistant Medical; Referring Provider Physician Assistant Medical; Visit Provider Physician Assistant Medical
DX: I77.9 Disorder of arteries and arterioles, unspecified (principal); I65.23 Occlusion and stenosis of bilateral carotid arteries
CPT/HCPCS: 36415; 70496; 70498; 82565; Q9967